=== PATIENT | male | born 1935 | race Caucasian/White ===

== ENCOUNTER 2016-09-14 14:27 | Emergency (ER) | payer MEDICARE, MEDICAID ==
[~2016-09-14] VITALS: Ht 172.7 cm; Wt 103.0 kg
[~2016-09-14 14:27] MED LIST: ALBU0.086 INH; ALBU8I INH; LOTR10CA PO; NEBUMIS6 INH; TIMO0.5S6 EACH EYE; VENTAER INH
[2016-09-14 14:32] VITALS: BP 187/86; PULSE 70; RESP 18; TEMP 98.4; O2SAT 92
[2016-09-14] MEDS ORDERED: VENTAER INH (14:56)
[2016-09-14] MEDS ORDERED: LOTR10CA PO (14:56)
[2016-09-14] MEDS ORDERED: ALBU.5I NEB (14:56)
[2016-09-14] MEDS ORDERED: ALRE0.2S3 EACH EYE (14:56)
[2016-09-14] MEDS ORDERED: TIMO0.5S5 EACH EYE (14:56)
[2016-09-14] MEDS ORDERED: LUMI0.01 EACH EYE (14:56)
--- NOTE | 2016-09-14 14:58 | PD ---
HPI Chief Complaint: Musculoskeletal Complaint Time Seen by Provider: 14:48 Travel History International Travel<30 days: No Contact w/Intl Traveler<30days: No Traveled to known affect area: No History of Present Illness HPI 81-year-old male who reports a history of COPD, glaucoma, hypertension. He presents here for evaluation of left hip pain. Symptoms started 2 or 3 days ago. He describes it as an aching pain that is worse when he walks or performs range of motion activities with his left hip. He has no pain when resting. The pain does not radiate into his leg, abdomen or back. He has been using Advil but symptoms have persisted which prompted evaluation. He has been ambulating using a walker because of the pain. Denies any trauma. Denies any abdominal pain, leg pain, numbness or tingling or weakness. He has no other complaints at this time. PFSH Past Medical History Arthritis: Yes Blood Disorders: No Cancer: No Cardiovascular Problems: Yes High Cholesterol: Yes COPD: Yes (EMPHYSEMA) Diabetes: Yes (diet controlled) Diminished Hearing: No Glaucoma: Yes Genitourinary: No Hypertension: Yes Immune Disorder: No Neurologic: No Psychiatric: No Reproductive: No Respiratory: Yes (COPD) Immunizations Current: No (REFUSES FLU AND PNEU) Past Surgical History Abdominal Surgery: Yes (hernia repair 97) Appendectomy: Yes (2006) Body Medical Devices: none Tonsillectomy: Yes Social History Alcohol Use: No Tobacco Use: No (STOPPED 2006 POST 51 YRS) Substance Use: No Allergies-Medications (Allergen,Severity, Reaction): Coded Allergies: Dilaudid (Verified Allergy, Severe, VOMITING, 09/14/16) PATIENT STATES HE IS NOT ALLERGIC TO DILAUDID Reported Meds & Prescriptions Reported Meds & Active Scripts Active Tylenol-Codeine #3 (Acetaminophen-Codeine) 300-30 mg Tab 1-2 Tab PO Q6H PRN Reported Lumigan Opth Drops (Bimatoprost) 0.01% Soln 1 Drop EACH EYE HS Alrex Opth Drops (Loteprednol Etabonate) 0.2 % Soln 1 Drop EACH EYE QID Timoptic Opth Drops (Timolol Opth Drops) 0.5 % Soln 1 Drop EACH EYE BID Albuterol Neb (Albuterol Sulfate) 2.5 Mg/0.5 Ml Neb 2.5 Mg NEB Q4HR NEB PRN Note: The Albuterol Sulfate Inhalation Solution is concentrated and must be diluted. Read complete instructions carefully before using. Ventolin Hfa 18 GM Inh (Albuterol Sulfate) 90 Mcg/Act Aer 2 Puff INH Q4-6H PRN Lotrel (Amlodipine-Benazepril) 10-20 Mg Cap 1 Cap PO DAILY Review of Systems Gastrointestinal: No: Nausea, Vomiting, Abdominal Pain Musculoskeletal: Positive: Limited ROM, Pain, No: Weakness, Edema Skin: No Rash Physical Exam Narrative GENERAL: This is a well-developed obese male who is in no acute distress. SKIN: Warm and dry. There is no rash, no bruising or soft tissue swelling. HEAD: Atraumatic. Normocephalic. EYES: Pupils equal and round. No scleral icterus. No injection or drainage. ENT: No nasal bleeding or discharge. Mucous membranes pink and moist. NECK: Trachea midline. No JVD. CARDIOVASCULAR: Regular rate and rhythm. No murmur appreciated. RESPIRATORY: No accessory muscle use. Clear to auscultation. Breath sounds equal bilaterally. GASTROINTESTINAL: Abdomen soft, non-tender, nondistended. MUSCULOSKELETAL: No obvious deformities. The patient has pain with active flexion and internal and external Rotation of the left hip. He has no pain with passive range of motion of the left hip. He has no tenderness to palpation along the lumbar spine, pelvic girdle or hips. He has no lower extremity edema. Distal pulses are intact. NEUROLOGICAL: Awake and alert. No obvious cranial nerve deficits. Motor grossly within normal limits. Normal speech. Data Data Last Documented VS Vital Signs Date Time Temp Pulse Resp B/P Pulse Ox O2 Delivery O2 Flow Rate FiO2 09/14/16 14:32 98.4 70 18 187/86 92 MDM Medical Decision Making Medical Screen Exam Complete: Yes Emergency Medical Condition: Yes Medical Record Reviewed: Yes Differential Diagnosis Iliopsoas strain, trochanteric bursitis, lateral femoral cutaneous nerve syndrome, osteoarthritis, inflammatory arthritis, DVT, claudication Narrative Course 81-year-old male presents with 2-3 days of left hip pain that is reproduced when walking or performing range of motion activities actively utilizing his left hip. He has no pain with rest. On examination the pain is elicited with active range of motion of the left hip, particularly flexion of the left hip, suggesting iliopsoas or other muscular pathology. He has no reproducible tenderness to palpation to suggest fracture or bursitis and he has no pain with passive range of motion to suggest an inflammatory arthritis. There is no evidence of claudication or DVT. His abdomen is soft and nontender. We will perform an x-ray of the left hip and likely discharge home with outpatient follow-up with primary care physician, possibly for physical therapy referral. The patient is declining x-ray which is reasonable given his history and examination does not suggesting a fracture. He will be discharged with a short course of pain medication. Diagnosis Primary Impression: Strain of left hip Qualified Code: S76.012A - Strain of left hip, initial encounter Additional Instructions: Follow-up with primary care physician next week. You would benefit from physical therapy. Continue taking Advil as needed per dosing instructions on the bottle. Take with meals. Take Tylenol with codeine for breakthrough pain. Do not drive or drink alcohol when taking this medication. Return for any acutely new or worsening symptoms. Med/Other Pt SpecificInfo: Prescription(s) given Scripts Acetaminophen-Codeine (Tylenol-Codeine #3)300-30 mg Tab1-2 Tab PO Q6H PRN (PAIN ) #20 TAB Ref 0 Prov:Celena Little MD 09/14/16 Disposition: 01 DISCHARGE HOME Condition: Stable Jose Wilder Sep 14, 2016 14:58
[2016-09-14] MEDS ORDERED: TYLETAB34 PO (15:05)
[2016-09-14] MEDS ORDERED: ACETAMINOPHEN/CODEINE 300 MG/30 MG TAB PO ONE (15:15)
== END 2016-09-14 16:14 | disposition home or self-care (01) ==
LOC: PHEFT 14:27
DX: S76.002A Unspecified injury of muscle, fascia and tendon of left hip, initial encounter (principal); J44.9 Chronic obstructive pulmonary disease, unspecified; I10 Essential (primary) hypertension; E78.00 Pure hypercholesterolemia, unspecified; E11.9 Type 2 diabetes mellitus without complications; Z87.891 Personal history of nicotine dependence
CPT/HCPCS: 99283